=== PATIENT | female | born 1980 | race Caucasian/White ===

== ENCOUNTER 2021-07-27 18:58 | Emergency (ER) | payer OTHER ==
[~2021-07-27] VITALS: Ht 157.5 cm; Wt 204.1 kg
[~2021-07-27 18:58] MED LIST: BACTRIM DS TAB1 EACH PO; CYMBALTA60 MG PO; DOXYCYCLIN25 MG/5 ML PO; FIORICET 50-321 EACH PO; FLAGYL500 MG PO; SYNTHROID50 MCG PO; VICODIN 5-5001 EACH PO; ZANAFLEX4 M1 PO; ZOFRAN4 MG PO
[2021-07-27 21:55] VITALS: BP 140/93
== END 2021-07-27 21:58 | disposition home or self-care (01) ==
LOC: ER 18:58
DX: M79.604 Pain in right leg (principal); M25.571 Pain in right ankle and joints of right foot; M71.21 Synovial cyst of popliteal space [Baker], right knee; G43.909 Migraine, unspecified, not intractable, without status migrainosus; Z90.49 Acquired absence of other specified parts of digestive tract; Z90.89 Acquired absence of other organs; Z79.1 Long term (current) use of non-steroidal anti-inflammatories (NSAID); Z79.899 Other long term (current) drug therapy; Z79.891 Long term (current) use of opiate analgesic; Z88.8 Allergy status to other drugs, medicaments and biological substances; Z88.0 Allergy status to penicillin